=== PATIENT | male | born 1950 | race Caucasian/White ===

== ENCOUNTER → 2020-11-23 01:41 | Outpatient (CLI) | payer OTHER, SELFPAY ==
[2020-11-23 17:06] LABS: SARS-CoV-2 RNA PCR Negative
== END ==
PROVIDERS: PCP Family Medicine; Visit Provider Family Medicine
DX: Z20.822 Contact with and (suspected) exposure to COVID-19 (principal)
CPT/HCPCS: C9803; U0003; U0005

== ENCOUNTER 2021-01-05 03:44 | Day surgery (SDC) | payer OTHER, SELFPAY ==
[2020-12-20 13:54] VITALS: BMI 34.5
--- NOTE | 2021-01-04 12:43 | PM.HPGS ---
History of Present Illness History of Present Illness Consent: Risks, benefits, and alternatives have been discussed and questions answered. Patient agrees to proceed with procedure. Chief complaint: hx of colon polyps Narrative: Jayden Jones is a 70 year old male with referred for colon cancer screening. He has a history of having polyps. Three were removed about 5 years ago Review of Systems Review of Systems: All systems reviewed & are unremarkable except as noted in HPI and below PMFSH Past Medical History Medical History Adenoma of large intestine Atherosclerosis of aorta Benign essential HTN CAD (coronary artery disease) Chronic diastolic (congestive) heart failure GERD without esophagitis History of tobacco use Impaired fasting glucose Mixed hyperlipidemia Morbid (severe) obesity due to excess calories DOM on CPAP Surgical History Surgical History S/P CABG x 3 Family History Family History Sibling Acute myocardial infarction, Onset Age: 69 Patient's brother is Malignant neoplasm of prostate Mother Patient's mother is Father Patient's father is Family history of lymphoma Other Malignant neoplasm of prostate Social History Social History Social History: Smoking packs per day: 1 Smoking cigarettes per day: 20.0 Smoking status: Former smoker Second hand tobacco smoke exposure: No Smoking end date: 03/03/06 Alcohol intake: current Drinks per week: 6 Alcohol use details: occasionally Substance use: never Substance use type: does not use Living arrangements: alone Additional occupation/education comments: Pt works finishing department supervisor Gender identity (if verbalized by the patient): Male Sexual Orientation (if Verbalized by the Patient): Straight or Heterosexual Spiritual care concerns: No Meds Home Medications and Allergies Home Medications Medication Instructions Recorded Confirmed Type cetirizine 10 mg tablet 5 mg PO DAILY PRN 06/29/19 01/05/21 History furosemide 20 mg tablet 20 mg PO .QOD #90 tablet 09/24/19 01/05/21 Rx aspirin 81 mg tablet,delayed 81 mg PO DAILY 10/19/19 01/05/21 History release clopidogrel 75 mg tablet 75 mg PO DAILY #90 tablet 01/19/20 01/05/21 Rx metoprolol tartrate 25 mg tablet 25 mg PO BID #180 tablet 07/14/20 01/05/21 Rx lisinopril 20 1 tablet PO DAILY #90 tablet 10/11/20 01/05/21 Rx mg-hydrochlorothiazide 12.5 mg tablet omeprazole 20 mg capsule,delayed 20 mg PO DAILY #90 cap 11/29/20 01/05/21 Rx release amlodipine 5 mg PO .pm 12/20/20 01/05/21 History simvastatin 20 mg tablet See Rx Instructions .ROUTE 12/28/20 01/05/21 Rx .COMPLEX #90 tablet Allergies Allergy/AdvReac Type Severity Reaction Status Date / Time No Known Allergies Allergy Verified 01/05/21 11:40 Exam Resp: Auscultation: clear to auscultation bilaterally Cardio: Rate: regular rate Rhythm: regular rhythm GI: GI Palp: Yes Soft to palpation and No Tenderness to palpation present (GI) Assessment and Plan Assessment and plan (1) Colon cancer screening: Code(s): Z12.11 - Encounter for screening for malignant neoplasm of colon Status: Acute Assessment and Plan: Colonoscopy with possible biopsy or polypectomy or cautery or injection of substances.
[2021-01-05 11:41] VITALS: BP 136/68; PULSE 55; RESP 18; TEMP 36; O2SAT 98
[2021-01-05] MEDS: LACTATED RINGERS 1,000 ML 150 ML IV CONT (11:53)
--- NOTE | 2021-01-05 12:16 | WPDANESEPPF ---
Anes - Initial Pre Proc Eval Procedure: Operation Date: 01/05/21 13:00 Proposed Procedures p Screening Colonoscopy - Ricky Juarez MD Date/Time: 01/05/21 12:16 Surgeon: Ricky Juarez MD Pre Op Diagnosis: hx of colon polyps Patient Data Age: 70 Gender: M Height: 1.7 m Weight: 102.5 kg Last Vital Signs Temp 36.0 C L 01/05/21 11:41 Pulse 55 L 01/05/21 11:41 Resp 18 01/05/21 11:41 BP 136/68 01/05/21 11:41 Pulse Ox 98 01/05/21 11:41 Allergies Allergy/AdvReac Type Severity Reaction Status Date / Time No Known Allergies Allergy Verified 01/05/21 11:40 Home Medications Medication Instructions Recorded Confirmed Type cetirizine 10 mg tablet 5 mg PO DAILY PRN 06/29/19 01/05/21 History furosemide 20 mg tablet 20 mg PO .QOD #90 tablet 09/24/19 01/05/21 Rx aspirin 81 mg tablet,delayed 81 mg PO DAILY 10/19/19 01/05/21 History release clopidogrel 75 mg tablet 75 mg PO DAILY #90 tablet 01/19/20 01/05/21 Rx metoprolol tartrate 25 mg tablet 25 mg PO BID #180 tablet 07/14/20 01/05/21 Rx lisinopril 20 1 tablet PO DAILY #90 tablet 10/11/20 01/05/21 Rx mg-hydrochlorothiazide 12.5 mg tablet omeprazole 20 mg capsule,delayed 20 mg PO DAILY #90 cap 11/29/20 01/05/21 Rx release amlodipine 5 mg PO .pm 12/20/20 01/05/21 History simvastatin 20 mg tablet See Rx Instructions .ROUTE 12/28/20 01/05/21 Rx .COMPLEX #90 tablet Patient hx anesthesia problems: none Family hx anesthesia problems: none Results Review: All pre-operative results and documents have been reviewed as part of the pre-operative evaluation. [facility] Past Medical History Medical History Adenoma of large intestine Atherosclerosis of aorta Benign essential HTN CAD (coronary artery disease) Chronic diastolic (congestive) heart failure GERD without esophagitis History of tobacco use Impaired fasting glucose Mixed hyperlipidemia Morbid (severe) obesity due to excess calories DOM on CPAP Surgical History Surgical History S/P CABG x 3 Family History Family History Sibling Acute myocardial infarction, Onset Age: 69 Patient's brother is Malignant neoplasm of prostate Mother Patient's mother is Father Patient's father is Family history of lymphoma Other Malignant neoplasm of prostate Social History Social History Social History: Smoking packs per day: 1 Smoking cigarettes per day: 20.0 Smoking status: Former smoker Second hand tobacco smoke exposure: No Smoking end date: 03/03/06 Alcohol intake: current Drinks per week: 6 Alcohol use details: occasionally Substance use: never Substance use type: does not use Living arrangements: alone Additional occupation/education comments: 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 Gender identity (if verbalized by the patient): Male Sexual Orientation (if Verbalized by the Patient): Straight or Heterosexual Spiritual care concerns: No Anes - Eval Final PreProcedure Day of Procedure 01/05/21 12:16 Patient weight: obese Heart: regular rate and rhythm Lungs: decreased breath sounds Airway: Mallampati scale class III Neurological: alert and oriented Last oral intake: >/= 8 hours ASA classification: III Emergent: no Anesthetic plan: proceed Anesthesia type and monitoring: general GIVS and standard monitoring Results Review: All pre-operative results and documents have been reviewed as part of the pre-operative evaluation. Informed Consent: The patient's anesthetic plan and its attendant risks and benefits were discussed with the patient/family/POA. Questions were solicited and answers provided to the satisfaction of the patient/family/POA.
[2021-01-05 13:30] VITALS: BP 108/51; PULSE 53; RESP 23; O2SAT 97
[2021-01-05 13:40] VITALS: BP 115/60; PULSE 57; RESP 22; O2SAT 100
[2021-01-05 13:50] VITALS: BP 136/61; PULSE 55; RESP 20; O2SAT 99
--- NOTE | 2021-01-05 14:09 | SUR.PHASEII ---
Per Dr. Juarez, patient is to resume Plavix at home. Note left on patients discharge information.
== END 2021-01-05 13:54 | disposition home or self-care (01) ==
PROVIDERS: PCP Family Medicine; Visit Provider Internal Medicine Gastroenterology
PROC: 0DJD8ZZ Inspection of Lower Intestinal Tract, Via Natural or Artificial Opening Endoscopic (ICD-10-PCS; CPT 45378; principal; 2021-01-05 13:00)
DX: Z12.11 Encounter for screening for malignant neoplasm of colon (principal); Z86.010 Personal history of colon polyps; K57.30 Diverticulosis of large intestine without perforation or abscess without bleeding; Z79.82 Long term (current) use of aspirin; I25.10 Atherosclerotic heart disease of native coronary artery without angina pectoris; I11.0 Hypertensive heart disease with heart failure; K21.9 Gastro-esophageal reflux disease without esophagitis; I50.9 Heart failure, unspecified; E78.2 Mixed hyperlipidemia; I70.0 Atherosclerosis of aorta; Z95.1 Presence of aortocoronary bypass graft; R73.01 Impaired fasting glucose; E66.9 Obesity, unspecified; Z68.35 Body mass index [BMI] 35.0-35.9, adult
CPT/HCPCS: G0105; J2001; J2704; J7120

== ENCOUNTER 2023-05-15 15:25 | Outpatient (CLI) | payer OTHER, SELFPAY ==
--- NOTE | ~2023-05-15 | XR_ITS ---
XR hip BI 2V w AP pelvis 05/15/2023 15:48 Indication: Bilateral hip pain Procedure: AP pelvis and 2 views each Comparison: No prior studies for comparison. Findings: There is mild symmetric osteoarthritis of the hips. No fracture, subluxation or dislocation . Sacral foramen are symmetric. Impression: 1: Mild symmetric osteoarthritis of the hips. Reviewed, dictated and finalized at location A. Impression: 1: Mild symmetric osteoarthritis of the hips.
--- NOTE | ~2023-05-15 | XR_ITS ---
XR lumbar spine min 4V 05/15/2023 15:48 Indication: Back pain Procedure: 5 views of the lumbar spine Comparison: No prior studies for comparison. Findings: There is grade 1 spondylolisthesis at L4-5. There is mild disc narrowing at L4-5. There is moderate disc narrowing at L5-S1. There is facet hypertrophy at L4-5 and L5-S1. No acute fracture or traumatic malalignment. Pedicles intact. There is disc narrowing at L2-3. There is atherosclerosis of the aorta. Impression: 1: Moderate lumbar spondylosis with grade 1 degenerative spondylolisthesis at L4-5. Reviewed, dictated and finalized at location A. Impression: 1: Moderate lumbar spondylosis with grade 1 degenerative spondylolisthesis at L 4-5.
== END 2023-05-15 15:26 ==
PROVIDERS: PCP Family Medicine; Visit Provider Family Medicine
DX: M47.816 Spondylosis without myelopathy or radiculopathy, lumbar region (principal); M25.559 Pain in unspecified hip; M43.06 Spondylolysis, lumbar region; M16.0 Bilateral primary osteoarthritis of hip
CPT/HCPCS: 72110; 73521

== ENCOUNTER 2023-07-18 12:02 | Emergency (ER) | payer OTHER, SELFPAY ==
[2023-07-18 12:17] VITALS: BP 134/65; PULSE 55; RESP 16; TEMP 36.6; O2SAT 99
--- NOTE | 2023-07-18 12:29 | ED.EXTPRO ---
HPI - Extremity Problem General Chief complaint: Extremity Problem,Nontraumatic Stated complaint: sore toe right foot Time Seen by Provider: 07/18/23 12:30 Source: patient and RN notes reviewed Mode of arrival: ambulatory Limitations: no limitations History of Present Illness HPI Narrative: 72-year-old male presents with concern for pain to the 1st digit of the right foot. He reports redness toenail. He denies injury MD Complaint: extremity pain Related Data Home Medications Medication Instructions Recorded Confirmed cetirizine 10 mg tablet (Zyrtec) 5 mg PO DAILY Allergy Symptoms 07/18/21 07/18/23 Allergies Allergy/AdvReac Type Severity Reaction Status Date / Time No Known Allergies Allergy Verified 07/18/23 12:18 Review of Systems Review of Systems: CONSTITUTIONAL: Denies malaise, chills, sweats, or fever. CARDIOVASCULAR: Denies chest pain, palpitations, or edema. RESPIRATORY: Denies cough or dyspnea. SKIN: Denies rash or itching, bruising, redness, swelling. MUSCULOSKELETAL: Reports pain and redness around the nail bed of the 1st digit of the right foot NEUROLOGIC: Denies numbness, weakness All systems reviewed & are unremarkable except as noted in HPI and below PMFSH Past Medical History Medical History (Updated 07/18/23 @ 12:37 by Alison Strange NP) Adenoma of large intestine Allergic rhinitis Atherosclerosis of aorta Benign essential HTN CAD (coronary artery disease) Cat scratch of left lower leg Chronic diastolic (congestive) heart failure Constipation Encounter for screening laboratory testing for COVID-19 virus in asymptomatic patient Family history of lymphoma Family history of [place] (myocardial infarction) Family history of prostate cancer GERD without esophagitis History of tobacco use Impaired fasting glucose Mixed hyperlipidemia Morbid (severe) obesity due to excess calories DOM on CPAP Surgical History Surgical History S/P CABG x 3 Family History Family History Sibling Acute myocardial infarction, Onset Age: 69 Patient's brother is Malignant neoplasm of prostate Mother Patient's mother is Father Patient's father is Family history of lymphoma Other Malignant neoplasm of prostate Social History Social History Social History: Smoking packs per day: 1 Smoking cigarettes per day: 20.0 Smoking status: Former smoker Second hand tobacco smoke exposure: No Smoking end date: 03/03/06 Alcohol intake: current Alcohol use details: occasionally Substance use: never Substance use type: does not use Lack of Transportation: No Lack of Food: Never True Current Housing: I Have Housing Concerned About Future Housing: No Difficulty Paying Gas/Electric Bills: No Difficulty Paying for Meds: No Currently Unemployed: No Education: Decline to Answer Difficulty w/ Childcare or Family Care: No Living arrangements: with family Occupation/Education: occupation Additional occupation/education comments: Pt works supervisor production department Gender identity (if verbalized by the patient): Male Sexual Orientation (if Verbalized by the Patient): Straight or Heterosexual Spiritual care concerns: No Comments At time of signature, agree with nursing past medical, surgical, social and family history. There is no relevant family history pertinent to the presenting complaint Exam Narrative: GENERAL: Well-appearing, well-nourished, and in no acute distress. HEAD: Normocephalic, atraumatic. EYES: PERRLA, conjunctivae clear, and EOMI. ENT: Mucous membranes moist. NECK: Supple. No lymphadenopathy CHEST: Clear to auscultation. No respiratory distress. HEART: Regular rate and rhythm. SKIN: Warm, dry. Erythema and mild edema surrounding the nail bed o
== END 2023-07-18 12:49 | disposition home or self-care (01) ==
PROVIDERS: Emergency Provider Nurse Practitioner; PCP Family Medicine
DX: L03.031 Cellulitis of right toe (principal); Z87.891 Personal history of nicotine dependence; I70.0 Atherosclerosis of aorta; I10 Essential (primary) hypertension; I25.10 Atherosclerotic heart disease of native coronary artery without angina pectoris; K21.9 Gastro-esophageal reflux disease without esophagitis; E78.2 Mixed hyperlipidemia; E66.01 Morbid (severe) obesity due to excess calories; Z68.36 Body mass index [BMI] 36.0-36.9, adult; G47.33 Obstructive sleep apnea (adult) (pediatric); Z95.5 Presence of coronary angioplasty implant and graft
CPT/HCPCS: 99213; G0463

== ENCOUNTER 2024-07-05 13:31 | Outpatient (CLI) | payer OTHER, SELFPAY ==
--- NOTE | ~2024-07-05 | CT_ITS ---
Noncontrast CT scan of the cervical spine Technique: Multiple contiguous axial [address] images of the cervical spine were obtained and rec onstructed in 2D sagittal and coronal planes on the acquisition scanner. Dose reduction technique was used on this scan by utilizing automated exposure control, adjustment of the mA and/or kV according to patient size. The dose-length product (DLP) was 259.53 mGy-cm. Clinical History: Cervicalgia Findings: No acute fracture. There is minimal grade 1 anterolisthesis of C4 over C5. There is mild re versal normal cervical lordosis. At C2-C3, there is minimal central disc bulge. There is mild left facet arthropathy. No central canal stenosis, cord compression, or neural foraminal narrowing. At C3-C4, there is no disc bulge or herniation. There is left facet arthropathy. No spinal canal sten osis, cord compression, or right neural foraminal narrowing. Possible minimal left neural foraminal n arrowing. At C4-C5, there is minimal disc bulge. No spinal canal stenosis, cord compression, or left neural for aminal narrowing. There is probable minimal right neural foraminal narrowing with moderate facet arth ropathy. At C5-C6, there is severe degenerative disc narrowing. There is mild disc bulge centrally. There is m ild bilateral neural foraminal narrowing. No definite canal stenosis. At C6-C7, there is advanced degenerative disc narrowing. No definite spinal canal stenosis, cord comp ression, or neural foraminal narrowing.. No prevertebral soft tissue swelling. Impression: Mild degenerative spondylosis overall, as detailed above. Reviewed, dictated and finalized at location . Impression: Mild degenerative spondylosis overall, as detailed above.
== END 2024-07-05 13:32 | disposition home or self-care (01) ==
LOC: MICIMG 13:32
PROVIDERS: PCP Family Medicine; Visit Provider Student in an Organized Health Care Education/Training Program
DX: M47.892 Other spondylosis, cervical region (principal)
CPT/HCPCS: 72125